=== PATIENT | male | born 1980 | race Caucasian/White ===

== ENCOUNTER 2021-03-29 23:32 | Emergency (ER) | payer OTHER ==
[~2021-03-29 23:32] MED LIST: LORTAB 5-325 M1 EACH PO
[2021-03-30 00:20] LABS: HEMOGLOBIN 15.9 gm/dl (14.0-17.5); RED BLOOD COUNT 5.01 M/UL (4.20-5.50); WHITE BLOOD COUNT 8.9 K/UL (4.5-11.0)
[2021-03-30 01:20] LABS: BUN/CREATININE RATIO 16 (0-10)
[2021-03-30] MEDS ORDERED: NITROSTAT 0.4100 TAB SL (01:56)
[2021-03-30] MEDS ORDERED: ISOSORBIDE MONO30 MG PO (01:56)
[2021-03-30] MEDS ORDERED: ASPIRIN CHEWABL81 MG PO (02:01)
== END 2021-03-30 02:20 | disposition home or self-care (01) ==
LOC: ER1 23:32
PROVIDERS: Family Medicine
DX: R07.9 Chest pain, unspecified (principal); R73.9 Hyperglycemia, unspecified
CPT/HCPCS: 71045; 80053; 82550; 82553; 83874; 84484; 85025; 85379; 85610; 93005; 99285

== ENCOUNTER → 2021-05-14 | Outpatient (CLI) | payer OTHER ==
[~2021-05-14] MED LIST changes: +ASPIRIN CHEWABL81 MG PO; +ISOSORBIDE MONO30 MG PO; +NITROSTAT 0.4100 TAB SL
== END ==
LOC: HEART 5 04-27 08:00 → ECHO 08:56 → HEART 5 05-17 07:45
DX: R07.9 Chest pain, unspecified (principal); R73.09 Other abnormal glucose
CPT/HCPCS: ECHO; 78452; 93017; 93306; A9502